=== PATIENT | female | born 1980 | race Hispanic/Latino ===

== ENCOUNTER 2021-06-02 19:16 | Emergency (ER) | payer SELFPAY ==
--- NOTE | ~2021-06-02 | CT_ITS ---
EXAMINATION: CT brain wo con EXAM DATE: 06/02/2021 23:29 INDICATION: Headache for 3 months, worse the last 3 days. TECHNIQUE: Spiral CT of the head was performed without contrast. Axial, coronal and sagittal images were reviewed. The dose-length product (DLP) for this examination was 605.33 mGy-cm. The exposure w as tailored according to patient size, and iterative reconstruction (ASIR) was used as additional dos e reduction technique. There is no prior study for comparison. FINDINGS: There is no acute intraparenchymal hemorrhage. No evidence of intraparenchymal brain mass lesion. No evidence of acute infarction. There is no mass effect or midline shift. The ventricles are normal in size. There are no extra-axial collections. There are no acute calvarial fractures. T he orbits are unremarkable. Soft tissue is unremarkable. The visualized sinuses and mastoid air robert ls are well aerated. IMPRESSION: 1. Unremarkable head CT examination. Reviewed, dictated and finalized at location G.
[2021-06-02 19:41] VITALS: BP 111/65; PULSE 83; RESP 16; TEMP 36.5; O2SAT 99
--- NOTE | 2021-06-02 23:13 | ED.HA ---
HPI - Headache General Chief Complaint: Headache Stated Complaint: BAUMAN Time Seen by Provider: 06/02/21 22:34 Source: patient, family and RN notes reviewed Mode of arrival: ambulatory Limitations: language barrier (hebrew speaking) History of Present Illness HPI Narrative: This is a 40 year old female who presents for evaluation of headache. Patient reports her headache has been present for several months but it worsened over the past 3 days. She describes pain has electricity through out her head. She denies any exacerbating factors. She denies associated neck pain, nausea, vomiting, fever, sinus drainage, change in vision, dizziness. She has not taken any thing for pain. MD elicited complaint: headache Related Data Allergies Allergy/AdvReac Type Severity Reaction Status Date / Time No Known Allergies Allergy Verified 06/02/21 21:53 Review of Systems Review of Systems: All systems reviewed & are unremarkable except as noted in HPI and below Constitutional: Constitutional: Denies chills and Denies fever(s) Eyes: Eyes: Denies change in vision and Denies photophobia ENT: Denies nasal congestion Gastrointestinal: Gastrointestinal: Denies nausea and Denies vomiting Neurologic: Denies dizziness and Reports headache(s) [facility] Past Medical History Medical History (Updated 06/03/21 @ 00:46 by Waleska Alarcon MD) Patient denies medical problems Surgical History Surgical History (Updated 06/02/21 @ 23:14 by Waleska Alarcon MD) No pertinent past surgical history Social History Social History (Updated 06/02/21 @ 23:14 by Waleska Alarcon MD) Smoking status: Never smoker Gender identity (if verbalized by the patient): Female Exam Narrative: Exam Narrative: GENERAL: Well-appearing, well-nourished, and in no acute distress. HEAD: Normocephalic, atraumatic EYES: PERRLA and EOMI, conjunctiva clear without discharge EARS: TM's clear bilaterally without erythema or dullness NOSE: Nares clear, no rhinorrhea or epistaxis THROAT:Mucous membranes moist, Oropharynx normal without erythema, exudate, peritonsillar swelling or fluctuance NECK: Supple, without lymphadenopathy or mass RESPIRATORY: No respiratory distress, Airway patent, Respirations non-labored, Clear to auscultation without rales, rhonchi or wheeze HEART: Regular rate and rhythm. No murmur heard. Normal peripheral pulses. ABDOMEN: Soft, nontender, nondistended, normal active bowel sounds. No masses. No rebound or guarding, No organomegaly. EXTREMITIES: No edema, normal strength with full range of motion. SKIN: Warm, dry, normal color without rash NEURO: Alert and oriented x3. CN 2-12 grossly intact. No focal deficits. PSYCH: Normal mood and affect. Course Reevaluation(s) Reevaluation #1: PAtient is in no acute distress and she is neurovascular intact. She reports she had improvement in pain after toradol . I reviewed CT is unremarkable and she can follow up with PCP for evaluation. Date: 06/03/21 Time: 00:45 Vital Signs Vital signs: Vital Signs Temperature 97.7 F 06/02/21 19:41 Pulse Rate 83 06/02/21 19:41 Respiratory Rate 16 06/02/21 19:41 Blood Pressure 111/65 06/02/21 19:41 Pulse Oximetry 99 06/02/21 19:41 Temperature 97.7 F 06/02/21 19:41 Pulse Rate 78 06/03/21 01:22 Respiratory Rate 16 06/02/21 19:41 Blood Pressure 115/70 06/03/21 01:22 Pulse Oximetry 99 06/03/21 01:22 MDM - Headache Lab Data Labs: UCG Bedside Result Negative Reference Range: Negative Imaging Data Radiologist's impression: ITS Impressions Head CT 06/02/21 23:30 IMPRESSION: 1. Unremarkable head CT examination. Discharge Plan Discharge Clinical Impression: Headache Qualifiers: Headache type: unspecified Headache chronicity pattern: chronic headache Patient Disposition: Home, Self-Care Condition: Stabl
[2021-06-02] MEDS: KETOROLAC 30 MG/ML VIAL (*BKC) IM (23:15)
[2021-06-03 01:22] VITALS: BP 115/70; PULSE 78; O2SAT 99
== END 2021-06-03 01:21 | disposition home or self-care (01) ==
PROVIDERS: Emergency Provider General Practice; PCP Registered Nurse
DX: R51.9 Headache, unspecified (principal)
CPT/HCPCS: 70450; 81025; 96372; 99283; J1885

== ENCOUNTER 2021-09-13 12:16 | Emergency (ER) | payer SELFPAY ==
[2021-09-13 12:25] VITALS: BP 107/65; PULSE 85; RESP 16; TEMP 36.5; O2SAT 98
--- NOTE | 2021-09-13 12:34 | ED.EAR ---
HPI - Ear Problem General Chief complaint: Ear Stated complaint: ear pain Time Seen by Provider: 09/13/21 12:45 Source: patient and RN notes reviewed Mode of arrival: ambulatory Limitations: language barrier (Vietnamese-speaking, interpretation provided by patient's son) History of Present Illness HPI Narrative: 40-year-old female presents with concern for left ear pain. Reports rhinorrhea, nasal congestion and ear pain started on . She denies fever, drainage from the ear, cough, shortness of breath. She also reports having lower abdominal discomfort that started on Wednesday. She denies diarrhea, vomiting, nausea, constipation. Reports her last normal bowel movement was this morning prior to arrival. She denies taking any medications for her symptoms. Denies dysuria, frequency, urgency. Reports white discharge. Patient reports her last menstrual period was August 24 and was normal.. Patient has been fully vaccinated for Covid. MD Complaint: ear pain Related Data Allergies Allergy/AdvReac Type Severity Reaction Status Date / Time No Known Allergies Allergy Verified 09/13/21 12:32 Review of Systems Review of Systems: CONSTITUTIONAL: Denies malaise, chills, sweats, or fever. EYES: Denies visual changes, redness, or discharge. ENT: Reports rhinorrhea, congestion, left ear pain. Denies sinus pain and sore throat. CARDIOVASCULAR: Denies chest pain, palpitations, or edema. RESPIRATORY: Denies cough or dyspnea. GASTROINTESTINAL: Reports lower abdominal pain. Denies nausea, vomiting, diarrhea, constipation, decreased appetite SKIN: Denies rash or itching. MUSCULOSKELETAL: Denies myalgia. NEUROLOGIC: Denies headache. All systems reviewed & are unremarkable except as noted in HPI and below PMFSH Past Medical History Medical History (Updated 09/13/21 @ 12:56 by Reina Frazier NP) Patient denies medical problems Surgical History Surgical History (Updated 06/02/21 @ 23:14 by Waleska Alarcon MD) No pertinent past surgical history Social History Social History (Updated 06/02/21 @ 23:14 by Waleska Alarcon MD) Smoking status: Never smoker Gender identity (if verbalized by the patient): Female Comments At time of signature, agree with nursing past medical, surgical, social and family history. There is no relevant family history pertinent to the presenting complaint Exam Narrative: GENERAL: Well-appearing, well-nourished, and in no acute distress. HEAD: Normocephalic EYES: PERRLA, conjunctivae clear ENT: Nares clear, clear discharge. Mucous membranes moist. Right TM white with dull light reflex, left TM erythematous; no tragal tenderness. Oropharynx not erythematous without lesions. Tonsils not enlarged and without exudate, no drooling, no hoarseness, no trismus, uvula midline. NECK: Supple. No lymphadenopathy CHEST: Clear to auscultation, breath sounds equal. No wheezing, rhonchi, rales, or stridor. No respiratory distress, speaks in full sentences. HEART: Regular rate and rhythm. No murmur heard. ABDOMEN: Soft, no palpable masses, bowel sounds active in all 4 quadrants. Mild left lower quadrant tenderness SKIN: Warm, dry, no rash. NEURO: Alert and oriented x3. PSYCH: Normal mood and affect Course Course Emergency Course: Patient is aware of diagnosis, understands and agrees to treatment plan. Anticipatory guidance given. Patient agrees to follow-up as directed and is aware of reasons to seek care at the emergency department. Portions of this record may have been created with voice recognition software Vital Signs Vital signs: Reviewed. Medical Decision Making MDM Narrative Medical decision making narrative: Differential diagnosis considered: Dillard virus, strep pharyngitis, allergic rhinitis, upper respiratory tract infection, sinusitis, rhinosinusitis, nasopharyngitis. viral pharyngitis, otitis media, otitis externa, otitis effusion, eustachian tube dysfunction, foreign body, cerumen impaction. Exam f
== END 2021-09-13 13:25 | disposition home or self-care (01) ==
PROVIDERS: Emergency Provider Nurse Practitioner
DX: H66.002 Acute suppurative otitis media without spontaneous rupture of ear drum, left ear (principal); Z20.822 Contact with and (suspected) exposure to COVID-19
CPT/HCPCS: 81003; 87426; 99213; C9803; G0463

== ENCOUNTER 2022-12-08 16:28 | Emergency (ER) | payer SELFPAY ==
[2022-12-08 16:35] VITALS: BP 131/81; PULSE 95; RESP 18; TEMP 37.2; O2SAT 99
--- NOTE | 2022-12-08 16:35 | ED.GENADULT ---
HPI - General Adult General Chief complaint: Abdominal Pain Stated complaint: Abdominal Pain Time Seen by Provider: 12/08/22 16:35 Source: patient, RN notes reviewed, old records reviewed and faculty administrator Mode of arrival: ambulatory Limitations: no limitations History of Present Illness HPI narrative: 42-year-old female presents to the [facility] with complaints of right lower quadrant pain this is been getting worse over the last week. Denies any urinary symptoms. Denies fevers. Had to use an faculty administrator for [place]an the entire exam. No primary Last bowel movement this morning, normal 10 November was last menstrual period Related Data Allergies Allergy/AdvReac Type Severity Reaction Status Date / Time dog dander Allergy Mild Unknown Verified 12/08/22 16:40 house dust Allergy Mild Unknown Verified 12/08/22 16:40 Review of Systems Review of Systems: All systems reviewed & are unremarkable except as noted in HPI and below Constitutional: Constitutional: Reports no additional constitutional complaints Eyes: Eyes: Reports no additional eye complaints ENT: Reports system reviewed and no additional complaints, except as documented Cardiovascular: Cardiovascular: Reports no additional cardiovascular complaints, Denies chest pain and Denies dyspnea Respiratory: Respiratory: Reports no additional respiratory complaints, Denies chest congestion, Denies cough and Denies dyspnea Gastrointestinal: Gastrointestinal: Reports as per HPI, Reports abdominal pain (RLQ), Reports nausea and Denies vomiting Musculoskeletal: Musculoskeletal: Reports no additional musculoskeletal complaints Integumentary/Breasts: Skin/Breast: Reports system reviewed and no additional complaints, except as docu Neurologic: Reports system reviewed and no additional complaints, except as documented Psychiatric: Psychiatric: Reports no additional psychiatric complaints Allergic/Immunologic: Allergic/Immunologic: Reports no additional allergic/immunologic complaints [facility] Past Medical History Medical History GERD (gastroesophageal reflux disease) Patient denies medical problems Vitamin D deficiency Surgical History Surgical History Hx of cholecystectomy No pertinent past surgical history Social History Social History Smoking status: Never smoker Alcohol intake: current Substance use: never Gender identity (if verbalized by the patient): Female Comments At the time of my signature, I reviewed and agree with the nursing past medical, surgical, social, and family history. There is no relevant family history pertinent to the patient complaint. Exam Const: General: cooperative, healthy appearing, comfortable, no acute distress, well developed, alert and well nourished Nutritional Appearance: well nourished and obese Orientation/consciousness: patient oriented x3 Limitations: no limitations HENMT: Head: normal to inspection Ears: hearing grossly normal bilaterally and external ears normal Face/Nose/Sinus: Normal external nose present, Normal nares present, Normal nasal mucous membranes and turbinates present and normal facial exam Face and sinus: normal facial exam Mouth: Yes Normal oral and palatal mucosa present, Yes lip normal and Yes moist mucous membranes Throat: posterior oropharynx normal and uvula midline Eyes: General: appearance normal, both eyes and all related structures Alignment and Position: alignment normal Periorbital: periorbital findings normal Conjunctivae: conjunctivae normal Pupils: Equal, round and reactive pupils present EOM: EOMs intact bilaterally Neck: Neck: normal visual inspection, full ROM, no lymphadenopathy and no meningeal signs Chest: Chest palpation & inspection: normal inspection of the chest Resp: Effort & Inspection: normal respiratory effo
== END 2022-12-08 17:02 | disposition short-term general hospital (02) ==
PROVIDERS: Emergency Provider Nurse Practitioner; PCP Registered Nurse
DX: R10.31 Right lower quadrant pain (principal); K21.9 Gastro-esophageal reflux disease without esophagitis
CPT/HCPCS: 99212; G0463

== ENCOUNTER 2022-12-09 15:09 | Emergency (ER) | payer SELFPAY ==
--- NOTE | ~2022-12-09 | CT_ITS ---
EXAMINATION: CT abdomen pelvis w con DATE: 12/09/2022 18:06 INDICATION: Right lower quadrant abdominal pain. TECHNIQUE: Computed tomography (CT) of the abdomen and pelvis was performed with 100 mL Omnipaque 350 intravenous contrast. Automated exposure control and iterative reconstruction technique were employe d. The dose-length product was 356.48 mGy-cm. COMPARISON: CT abdomen and pelvis 10/28/2017 FINDINGS: The visualized portions of the lung bases demonstrate mild atelectasis. No pleural effusion . The heart size is normal. No pericardial effusion. The liver and spleen are normal. The gallbladder is absent. The pancreas, adrenal glands, and kidneys are normal. There are no dilated loops of bowel . The appendix is normal. There are no pathologically enlarged lymph nodes. There is no free intraper itoneal fluid. There is mild thoracic spondylosis. IMPRESSION: 1. No etiology for the patient's symptoms. Reviewed, dictated and finalized at location A. R [employer]
[2022-12-09 15:11] VITALS: BP 116/70; PULSE 87; RESP 18; TEMP 36.2; O2SAT 98
[2022-12-09 15:30] LABS: Basophils Percent Auto 0.4 % (0.2-1.2); Eosinophils Absolute Auto 0.1 K/mm3 (0-0.3); Eosinophils Percent Auto 1.9 % (0-4.4); Hematocrit 38.1 % (37.0-47.0); Hemoglobin 12.7 g/dL (12.0-15.0); Immature Granulocyte Absolute 0.02 K/mm3 (0.00-0.031); Immature Granulocyte Percent A 0.3 % (0-0.5); Lymphocytes Percent Auto 33.4 % (18.3-44.2); Mean Corpuscular HGB Conc 33.3 g/dl (32-36); Mean Corpuscular Hemoglobin 29.3 pg (26-34); Mean Corpuscular Volume 87.8 fl (80-100); Mean Platelet Volume 11.7 fl (7.4-10.4); Monocytes Absolute Auto 0.5 K/mm3 (0.1-0.6); Monocytes Percent Auto 6.8 % (2.6-8.5); Neutrophils Absolute Auto 4.3 K/mm3 (1.3-6.7); Neutrophils Percent Auto 57.2 % (45.5-73.1); Platelet Count Result 176 k/mm3 (150-375); Red Blood Count 4.34 M/mm3 (4.2-5.4); Red Cell Distribution Width 12.2 % (11.5-14.5); White Blood Count 7.5 K/mm3 (4.5-10.0)
[2022-12-09 15:39] LABS: Alanine Aminotransferase 22 U/L (6-35); Albumin Level 4.5 g/dL (3.5-5.1); Alkaline Phosphatase 76 U/L (38-126); Anion Gap 6 mmol/L (8-16); Aspartate Amino Transferase 27 U/L (14-36); Bilirubin,Total 1.7 mg/dL (0.2-1.3); Blood Urea Nitrogen 7 mg/dL (7-17); Calcium 8.6 mg/dL (8.4-10.2); Carbon Dioxide 29 mmol/L (22-30); Chloride 103 mmol/L (98-107); Estimated Glomerular Filt Rate > 60; Glucose 140 mg/dL (65-110); Lipase 67 U/L (23-300); Potassium 3.7 mmol/L (3.4-5.0); Sodium 138 mmol/L (137-145)
[2022-12-09 16:11] LABS: Appearance Urine Cloudy (Clear); Bilirubin Urine Negative (Negative); Blood Urine Trace-lysed (Negative); Color Urine Yellow (Yellow); Glucose Urine UA Negative (Negative); Ketones Urine Negative (Negative); Leukocyte Esterase Ur 1+ LEU/UL (Negative); Nitrate Urine Negative (Negative); Protein Urine Negative (Negative); Specific Grav Ur 1.015 (1.001-1.035); Urobilinogen Urine 0.2 mg/dL (<2.0); pH Urine 7.5 (5.0-9.0)
[2022-12-09 16:12] LABS: Amorphous Sediment Urine Few; Mucus Urine Rare /lpf; RBC Urine 0-2 /hpf (0-2); Squamous Epithelial Cell Urine Few /hpf (Few); WBC Urine 0-3 /hpf
[2022-12-09 16:13] LABS: Add Urine Microscopic? YES
--- NOTE | 2022-12-09 17:24 | ED.ABDPAIN ---
HPI - Abdominal Pain General Chief Complaint: Abdominal Pain Stated Complaint: RLQ pain Time Seen by Provider: 12/09/22 16:58 Source: patient Mode of arrival: ambulatory Limitations: no limitations and language barrier History of Present Illness HPI narrative: Patient is a 42 y/o female who presents to the ED with c/o lower ABD pain. Patient is primarily Vietnamese-speaking. Son at bedside assisted in translation. [employer] sign language interpreter was offered and declined. Patient reports having pain across her lower abdomen for the past 5 days. Pain has been fairly constant. She has not tried anything for the pain. Denies any aggravating or alleviating factors. She states she had a similar pain 4 years ago and was worked up at an outside hospital, but was not found to have anything wrong. She is otherwise asymptomatic. Denies any fevers, nausea, vomiting, diarrhea, constipation, rectal bleeding, urinary symptoms. Related Data Allergies Allergy/AdvReac Type Severity Reaction Status Date / Time dog dander Allergy Mild Unknown Verified 12/08/22 16:40 house dust Allergy Mild Unknown Verified 12/08/22 16:40 Review of Systems Review of Systems: CONSTITUTIONAL: Denies fever, chills, or sweats. CARDIOVASCULAR: Denies chest pain. RESPIRATORY: Denies cough or dyspnea. GASTROINTESTINAL: Reports lower abdominal pain. Denies nausea, vomiting, or diarrhea. GENITOURINARY: Denies dysuria or hematuria. All systems reviewed & are unremarkable except as noted in HPI and below PMFSH Past Medical History Medical History GERD (gastroesophageal reflux disease) Patient denies medical problems Vitamin D deficiency Surgical History Surgical History Hx of cholecystectomy No pertinent past surgical history Social History Social History Smoking status: Never smoker Alcohol intake: current Substance use: never Gender identity (if verbalized by the patient): Female Exam Narrative: GENERAL: Well appearing, well-nourished, non-toxic, in no acute distress. HEAD: Normocephalic, atraumatic. NECK: Supple. No adenopathy, no masses. RESPIRATORY: Airway patent, respirations nonlabored. Clear to auscultation bilaterally, no rales, rhonchi, wheezing. CARDIOVASCULAR: Regular rate and rhythm without murmurs, rubs, or gallops. Peripheral pulses 2+ and equal bilaterally. ABDOMINAL: Soft, mild tenderness throughout lower abdomen, no significant focal tenderness, nondistended, no hepatosplenomegaly. Normoactive BS. MUSCULOSKELETAL: Moves all extremities. Strength/ROM intact without gross deformities. SKIN: Warm, dry, normal color. No rashes. NEURO: A&O X3. Speech clear. Cranial nerves II-XII grossly intact. Steady gait. No ataxic movements. PSYCHIATRIC: Appropriate mood and affect. Normal interaction. Course Vital Signs Vital signs: Vital Signs Temperature 97.2 F L 12/09/22 15:11 Pulse Rate 87 12/09/22 15:11 Respiratory Rate 18 12/09/22 15:11 Blood Pressure 116/70 12/09/22 15:11 Pulse Oximetry 98 12/09/22 15:11 Temperature 97.9 F 12/09/22 19:57 Pulse Rate 72 12/09/22 19:57 Respiratory Rate 16 12/09/22 19:57 Blood Pressure 137/62 12/09/22 19:57 Pulse Oximetry 98 12/09/22 19:57 MDM - Abdominal Pain MDM Narrative Medical decision making narrative: Patient presented to ED with 5-day history of lower abdominal pain. She had not tried anything for pain prior to arrival. Vitals stable upon arrival. CBC and CMP unremarkable. No significant abnormalities. Bilirubin slightly elevated. Has been elevated in the past. UA without signs of infection. CT scan of abdomen pelvis obtained and unremarkable. No etiology for patient's symptoms. Discussed lab and imaging findings with patient. Patient feeling better with supportive therapy. Pain resol
[2022-12-09] MEDS: SODIUM CHLORIDE 0.9% IV 1,000 ML 999 ML IV CONT (17:50)
[2022-12-09] MEDS: KETOROLAC 30 MG/ML VIAL (*BKC) IV PUSH (18:46)
[2022-12-09 19:57] VITALS: BP 137/62; PULSE 72; RESP 16; TEMP 36.6; O2SAT 98
== END 2022-12-09 19:58 | disposition home or self-care (01) ==
PROVIDERS: Emergency Medicine; Emergency Provider Physician Assistant; PCP Registered Nurse
DX: R10.31 Right lower quadrant pain (principal)
CPT/HCPCS: 36415; 74177; 80053; 81001; 81025; 83690; 85025; 96365; 96375; 99284; J0131; J1885; J7030; Q9967

== ENCOUNTER 2023-07-23 19:10 | Emergency (ER) | payer MEDICAID, SELFPAY ==
--- NOTE | ~2023-07-23 | US_ITS ---
CORRECTED REPORT examination description change [facility] 07/27/23 This report was recreated on 07/27/23. Original report was EXAMINATION: US OB <= 14 weeks fetus w TV DATE: 07/23/2023 21:16 INDICATION: Unable to visualize heart beat. TECHNIQUE: Real-time transabdominal and transvaginal pelvic ultrasound was performed. COMPARISON: None. FINDINGS: TRANSABDOMINAL ULTRASOUND: The uterus measures 8.6 x 6.4 x 7.3 cm. TRANSVAGINAL ULTRASOUND: There is an intrauterine gestational sac. A yolk sac is identified. The crown rump length measures 1.5 cm, which correlates with an estimated gestational age of 8 weeks and 0 day(s) (+/-) 5 day(s). heart motion is not identified by M-mode Doppler. The right ovary measures 2.4 x 1.7 x 2.1 cm. The left ovary measures 2.4 x 1.6 x 1.7 cm. There is no free fluid in the pelvis. IMPRESSION: 1. demise. Reviewed, dictated and finalized at location E. MTDD IMPRESSION: 1. demise.
[2023-07-23 19:29] VITALS: BP 112/73; PULSE 84; RESP 15; TEMP 36.9; O2SAT 100
[2023-07-23 20:52] LABS: Appearance Urine Cloudy (Clear); Bacteria Urine 1+ /hpf; Bilirubin Urine Negative (Negative); Blood Urine Negative (Negative); Color Urine Yellow (Yellow); Glucose Urine UA Negative (Negative); Ketones Urine Trace mg/dL (Negative); Leukocyte Esterase Ur Trace LEU/UL (Negative); Need Manual Microscopic Reviewed; Nitrate Urine Negative (Negative); Protein Urine Negative (Negative); RBC Urine 21-50 /hpf (0-2); Specific Grav Ur 1.021 (1.001-1.035); Squamous Epithelial Cell Urine Moderate /hpf (Few); WBC Urine 0-5 /hpf; pH Urine 5.5 (5.0-9.0)
[2023-07-23 20:55] LABS: Add Urine Microscopic? YES
[2023-07-23 22:05] VITALS: BP 118/71; PULSE 89; RESP 17; O2SAT 99
[2023-07-23 22:09] VITALS: BP 118/71; PULSE 81; RESP 19; TEMP 36.4; O2SAT 100
[2023-07-23 22:16] LABS: Basophils Percent Auto 0.1 % (0.2-1.2); Eosinophils Absolute Auto 0.1 K/mm3 (0-0.3); Eosinophils Percent Auto 1.6 % (0-4.4); Hematocrit 34.1 % (37.0-47.0); Hemoglobin 11.2 g/dL (12.0-15.0); Immature Granulocyte Absolute 0.02 K/mm3 (0.00-0.031); Immature Granulocyte Percent A 0.3 % (0-0.5); Lymphocytes Absolute Auto 2.43 K/mm3 (0.9-3.2); Lymphocytes Percent Auto 30.8 % (18.3-44.2); Mean Corpuscular HGB Conc 32.8 g/dl (32-36); Mean Corpuscular Hemoglobin 29.8 pg (26-34); Mean Corpuscular Volume 90.7 fl (80-100); Mean Platelet Volume 12.5 fl (7.4-10.4); Monocytes Absolute Auto 0.5 K/mm3 (0.1-0.6); Monocytes Percent Auto 6.7 % (2.6-8.5); Neutrophils Absolute Auto 4.8 K/mm3 (1.3-6.7); Neutrophils Percent Auto 60.5 % (45.5-73.1); Platelet Count Result 166 k/mm3 (150-375); Red Blood Count 3.76 M/mm3 (4.2-5.4); Red Cell Distribution Width 12.7 % (11.5-14.5); White Blood Count 7.9 K/mm3 (4.5-10.0)
[2023-07-23 22:30] VITALS: BP 106/75; PULSE 84; RESP 22; O2SAT 98
[2023-07-23 22:37] LABS: Anion Gap 7 mmol/L (8-16); Blood Urea Nitrogen 5 mg/dL (7-17); Calcium 8.2 mg/dL (8.4-10.2); Carbon Dioxide 24 mmol/L (22-30); Chloride 105 mmol/L (98-107); Estimated Glomerular Filt Rate > 60; Glucose 136 mg/dL (65-110); Potassium 3.4 mmol/L (3.4-5.0); Sodium 136 mmol/L (137-145)
--- NOTE | 2023-07-23 22:44 | ED.PREGNANCY ---
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 Reports she was at an ultrasound clinic and was told they couldn't find a heartbeat so was told she should come to the ER. She is not currently having any symptoms. Denies fever, dysuria, vaginal bleeding, or pelvic cramping. Related Data Allergies Allergy/AdvReac Type Severity Reaction Status Date / Time No Known Allergies Allergy Verified 07/23/23 19:36 Review of Systems Review of Systems: CONSTITUTIONAL: Denies fever GASTROINTESTINAL: Denies abdominal pain, nausea, vomiting GENITOURINARY: Denies dysuria or hematuria. All systems reviewed & are unremarkable except as noted in HPI and below PMFSH Past Medical History Medical History (Updated 07/24/23 @ 00:44 by Moriah Kunz PA-C) History of gastroesophageal reflux (GERD) Social History Social History (Updated 07/23/23 @ 22:53 by Moriah Kunz PA-C) Substance use: never Exam Narrative: GENERAL: Well-appearing, well-nourished, and in no acute distress. HEAD: Normocephalic, atraumatic. EYES: EOMI. CHEST: Clear to auscultation. No respiratory distress. No wheezes rales or rhonchi HEART: Regular rate and rhythm. No murmur heard. Normal peripheral pulses. ABDOMEN: Soft, nontender, nondistended, normal active bowel sounds. EXTREMITIES: Normal range of motion. No edema. SKIN: Warm, dry, no rash. NEURO: No focal deficits. Alert and oriented x3. PSYCH: Normal mood and affect Course Course Emergency Course: Patient was updated on workup and agrees with plan of care Consultations Consultation #1: Spoke with Dr. Reed about patient and workup. Patient is to call to set up appointment for follow up Date: 07/24/23 Time: 00:36 Vital Signs Vital signs: Vital Signs Temperature 98.4 F 07/23/23 19:29 Pulse Rate 84 07/23/23 19:29 Respiratory Rate 15 07/23/23 19:29 Blood Pressure 112/73 07/23/23 19:29 Pulse Oximetry 100 07/23/23 19:29 Oxygen Delivery Room Air 07/23/23 19:29 Temperature 97.6 F 07/23/23 22:09 Pulse Rate 84 07/23/23 22:30 Respiratory Rate 22 H 07/23/23 22:30 Blood Pressure 106/75 07/23/23 22:30 Pulse Oximetry 98 07/23/23 22:30 Oxygen Delivery Room Air 07/23/23 19:29 MDM - OB/Uterine Contractions MDM Narrative Medical decision making narrative: Patient presents to the emergency department for abnormal ultrasound. She is 9 weeks by LMP. Went to an ultrasound clinic today and was told to come to the ER because they could not find a heartbeat. She denies any fevers, dysuria, hematuria, or vaginal bleeding. She is not have any pelvic cramping. Her vitals are stable. White blood cell count is normal. Patient mildly anemic with hemoglobin of 11.2. Metabolic panel without concerning findings. UA appears to be a contaminated catch with moderate squamous epithelial cells. Patient is O positive. Quantitative hCG 44,160. Obstetrics ultrasound shows demise. Patient was updated on workup. Spoke with Dr. Reed about patient and workup. Patient is to call to set up appointment for follow up early next week. Patient was given warnings to return to the ER Differential Diagnosis Differential diagnosis: Likely other (, threatened ) Lab Data Attestation: I reviewed the patient's lab results. 07/23/23 22:08 07/23/23 22:08 Labs: Lab Results 07/23/23 07/23/23 07/23/23 Range/Units 19:55 22:08 22:08 WBC 7.9 (4.5-10.0) K/mm3 RBC 3.76 L (4.2-5.4) M/mm3 Hgb 11.2 L (12.0-15.0) g/dL Hct 34.1 L (37.0-47.0) % MCV 90.7 (80-100) fl MCH 29.8 (26-34)
[2023-07-23 23:00] VITALS: BP 112/70; O2SAT 99
[2023-07-24 00:33] LABS: Anion Gap 7 mmol/L (8-16); Blood Urea Nitrogen 6 mg/dL (7-17); Calcium 8.3 mg/dL (8.4-10.2); Carbon Dioxide 24 mmol/L (22-30); Chloride 105 mmol/L (98-107); Estimated Glomerular Filt Rate > 60; Glucose 135 mg/dL (65-110); Potassium 3.4 mmol/L (3.4-5.0); Sodium 136 mmol/L (137-145)
[2023-07-24 01:01] VITALS: BP 136/86; O2SAT 100
== END 2023-07-24 01:18 | disposition home or self-care (01) ==
PROVIDERS: Emergency Medicine; Emergency Provider Physician Assistant
DX: O02.1 Missed abortion (principal); K21.9 Gastro-esophageal reflux disease without esophagitis
CPT/HCPCS: 36415; 76801; 76817; 80048; 81001; 81025; 84702; 85025; 85461; 86850; 86900; 86901; 99284

== ENCOUNTER 2023-08-10 15:29 | Emergency (ER) | payer SELFPAY ==
[2023-08-10 16:30] VITALS: BP 106/62; PULSE 86; RESP 18; TEMP 36.9; O2SAT 99
[2023-08-10 19:25] LABS: Basophils Percent Auto 0.2 % (0.2-1.2); Eosinophils Absolute Auto 0.2 K/mm3 (0-0.3); Eosinophils Percent Auto 1.8 % (0-4.4); Hematocrit 39.5 % (37.0-47.0); Hemoglobin 13.1 g/dL (12.0-15.0); Immature Granulocyte Absolute 0.02 K/mm3 (0.00-0.031); Immature Granulocyte Percent A 0.2 % (0-0.5); Lymphocytes Absolute Auto 2.48 K/mm3 (0.9-3.2); Mean Corpuscular HGB Conc 33.2 g/dl (32-36); Mean Corpuscular Hemoglobin 30.1 pg (26-34); Mean Corpuscular Volume 90.8 fl (80-100); Mean Platelet Volume 11.5 fl (7.4-10.4); Monocytes Absolute Auto 0.6 K/mm3 (0.1-0.6); Monocytes Percent Auto 6.9 % (2.6-8.5); Neutrophils Absolute Auto 5.3 K/mm3 (1.3-6.7); Neutrophils Percent Auto 61.9 % (45.5-73.1); Platelet Count Result 177 k/mm3 (150-375); Red Blood Count 4.35 M/mm3 (4.2-5.4); Red Cell Distribution Width 12.7 % (11.5-14.5); White Blood Count 8.6 K/mm3 (4.5-10.0)
== END 2023-08-10 18:00 | disposition left against medical advice (07) ==
PROVIDERS: Emergency Provider Emergency Medicine; PCP Registered Nurse
DX: O03.9 Complete or unspecified spontaneous abortion without complication (principal)
CPT/HCPCS: 36415; 84702; 85025; 99199

== ENCOUNTER 2023-08-12 13:08 | Day surgery (SDC) | payer MEDICAID, SELFPAY ==
[2023-08-12] VITALS (7 sets, daily range): BP systolic 101–124; BP diastolic 57–79; PULSE 62–79; RESP 16; TEMP 36.6; O2SAT 100
--- NOTE | 2023-08-12 11:54 | P.HP_ITS ---
H&P: HPI History of Present Illness Date/Time: 08/12/23 11:54 Chief Complaint: The vaginal bleeding Narrative: is a 42-year-old multiparous patient 1st trimester with heavy bleeding. Cervix is open consistent with incomplete AB she is admitted for suction dilatation curettage Exam Const: General: cooperative, healthy appearing and comfortable Nutritional Appearance: average body habitus Orientation/consciousness: oriented to person, oriented to place and oriented to time Resp: Effort & Inspection: normal respiratory effort Cardio: Rate: regular rate Rhythm: regular rhythm Heart sounds: S1 normal heart sound present and S2 normal heart sound present GI: Inspection: normal to inspection : External Female Exam: normal external appearance Speculum Exam - Vagin a: normal appearance of the vagina and vaginal bleeding Speculum Exam - Cervix: normal appearance of the cervix ( cervix open) Bimanual exam- vagina & uterus: enlarged Assessment and Plan Assessment and plan (1) Incomplete : Code(s): O03.4 - Incomplete spontaneous without complication Status: Acute Plan suction dilatation curettage
--- NOTE | 2023-08-12 11:56 | WPDHPUPDATE1 ---
History and Physical Update Update Date/Time: 08/12/23 11:56 History and Physical has been reviewed, including an updated exam of the patient. There are NO changes in the patient's condition. Risks, benefits, and alternatives have been discussed and questions answered. Patient agrees to proceed with procedure.
[2023-08-12] MEDS: LACTATED RINGERS 1,000 ML 30 ML IV CONT (12:00)
--- NOTE | 2023-08-12 12:20 | P.PNAN_ITS ---
Anes - Initial Pre Proc Eval Procedure: Operation Date: 08/12/23 11:15 Proposed Procedures p Suction Dilation and Curettage - Nabil Gastelum MD Date/Time: 08/12/23 12:20 Surgeon: Nabil Gastelum MD Pre Op Diagnosis: missed ab, excessive bleeding Patient Data Age: 42 Gender: F Height: Weight: Allergies Allergy/AdvReac Type Severity Reaction Status Date / Time No Known Allergies Allergy Verified 08/12/23 11:58 Home Medications Medication Instructions Recorded Confirmed Type hydrocodone 5 mg-acetaminophen 325 1 tablet PO Q4H PRN pain #14 tabs 08/12/23 Rx mg tablet Patient hx anesthesia problems: none Family hx anesthesia problems: none Results Review: All pre-operative results and documents have been reviewed as part of the pre- operative evaluation. Anes - Eval Final PreProcedure Day of Procedure 08/12/23 12:21 Patient weight: obese Heart: regular rate and rhythm Lungs: clear to auscultation Neurological: alert and oriented Last oral intake: >/= 8 hours ASA classification: II Emergent: no Anesthetic plan: proceed Anesthesia type and monitoring: general GIVS and standard monitoring Results Review: All pre-operative results and documents have been reviewed as part of the pre- operative evaluation. Informed Consent: The patient's anesthetic plan and its attendant risks and benefits were discussed with the patient/family/POA. Questions were solicited and answers provided to the satisfaction of the patient/family/POA.
--- NOTE | 2023-08-12 12:27 | SUR.PREOP ---
[id number]- SPOKE WITH SUSTAINABLE AGRICULTURE SPECIALIST- CONNIE- [id number]. PROCEDURE REVIEWED WITH PT AND ALL QUESTIONS ANSWERED. DR. LAMB SPOKE WITH PT AND REVIEWED ANESTHESIA QUESTIONS. OBTAINED PT SON NAME AND NUMBER, HE SPEAKS ITALIAN.
[2023-08-12] MEDS: LIDOCAINE HCL 1% LOCAL INJ 10 ML VIAL INFILTRATE (12:45)
--- NOTE | 2023-08-12 12:58 | P.OP_ITS ---
Procedure Note - Detailed Date of Procedure 08/12/23 Pre-op Diagnosis missed ab, excessive bleeding Post-op Diagnosis Same Procedure Performed Suction dilatation curettage Surgeon Nabil Gastelum MD Anesthesia MAC and Local Indications This 42-year-old female with an incomplete AP Findings Uterus sounded to 10cm. Tissue consistent products of conception Description of Procedure Patient is prepped draped in sterile fashion placed in dorsal lithotomy position. Under excellent IV sedation weighted speculum placed in posterior fornix of vagina. Anterior lip of the cervix grasped with single-tooth tenacu lum. 2.5cc 1% xylocaine anesthesia placed at 2, 4, 8, 10:00 a.m. of the cervix. Uterus sounded to 10cm. Serial dilatation with fragmented dilators performed followed by passage of 10. Suction curette. A moderate to large amount of tissue was removed. When a good grating sound was heard the instruments withdrawn. Patient went recovery in satisfactory condition. All sponge, needle, instrument counts were correct. There were no immediate complications Estimated Blood Loss 50 Drains No Packing No Pathology Yes Complications No immediate complications Condition Stable Disposition PACU
--- NOTE | 2023-08-12 13:11 | SUR.PHASEII ---
Pt blood type O Pos no Rhogam needed.
--- NOTE | 2023-08-12 14:24 | SUR.PHASEII ---
Addendum entered by Shirley Saldana, MAGAN 08/12/23 15:39: Discharge instructions given via online content editor. All questions answered. Prescriptions reviewed and given to pt. Addendum entered by Shirley Saldana, MAGAN 08/12/23 15:36: Decreased bleeding noted at this time. Small amount of bright red blood on jaki pad. Dr. Monica Gastelum notified, ok to discharge pt. Awaiting pack train driver, pt's son notified of discharge. Addendum entered by Shirley Saldana, MAGAN 08/12/23 14:34: [address] Monica Gastelum that pt saturated pad and gush of blood noted when pt stood up. New orders received for [place]. Continue to monitor. Original Note: 1420 Dr. Monica Gastelum paged regarding increased vaginal bleeding.
[2023-08-12] MEDS: METHYLERGONOVINE MALEATE 0.2 MG/ML VIAL IM (15:02)
== END 2023-08-12 15:53 | disposition home or self-care (01) ==
PROVIDERS: PCP Registered Nurse; Visit Provider Obstetrics & Gynecology
PROC: (CPT 59812; principal; 2023-08-12 11:15)
DX: O03.4 Incomplete spontaneous abortion without complication (principal)
CPT/HCPCS: 59812; 88305; J2210; J2250; J2704; J3010; J7120

== ENCOUNTER 2024-01-29 14:08 | Emergency (ER) | payer OTHER, SELFPAY ==
[2024-01-29 14:09] VITALS: BP 132/79; PULSE 82; TEMP 36.4; O2SAT 100
--- NOTE | 2024-01-29 14:47 | ED.GENADULT ---
[facility] - General Adult General Chief complaint: Headache Stated complaint: headache Time Seen by Provider: 01/29/24 14:14 Source: patient and chinese language professor Mode of arrival: ambulatory Limitations: no limitations History of Present Illness HPI narrative: This is a 43-year-old female who presents to the ED with chief complaint of gradual onset headache for the past 5 days. History provided with help of chinese language professor. She reports pain is mainly left side but is bilaterally and the occiput. Reports the headache comes and goes but has not resolved for the past 5 days. She has had headaches with similar pattern in the past but never this long. Denies neck pain, fevers, chills, nausea, vomiting, abdominal pain, chest pain, vision change, numbness, weakness. Denies worst headache of life. States she has not taken anything at all for the headache or pain. Related Data Allergies Allergy/AdvReac Type Severity Reaction Status Date / Time dog dander Allergy Mild Unknown Verified 01/29/24 14:42 house dust Allergy Mild Unknown Verified 01/29/24 14:42 Review of Systems Review of Systems: All systems as dictated in [facility] Past Medical History Medical History (Updated 01/29/24 @ 15:01 by Geoff De La Cruz PA-C) GERD (gastroesophageal reflux disease) History of gastroesophageal reflux (GERD) Patient denies medical problems Vitamin D deficiency Surgical History Surgical History (Updated 08/13/23 @ 07:29 by Nicki Odom) Hx of cholecystectomy No pertinent past surgical history Social History Social History (System 08/13/23 @ 07:29 by Nicki Odom) Smoking status: Never smoker Alcohol intake: current Substance use: never Gender identity (if verbalized by the patient): Female Exam Narrative: GENERAL: Well-appearing, well-nourished, and in no acute distress. HEAD: Normocephalic, atraumatic. EYES: PERRLA and EOMI. ENT: Nares clear, no rhinorrhea or epistaxis. Mucous membranes moist. Oropharynx without tonsillar hypertrophy exudate or other lesions. NECK: Supple. No adenopathy or masses. No meningeal signs CHEST: No respiratory distress. Clear to auscultation. No wheezes rales or rhonchi HEART: Regular rate and rhythm. No murmur heard. Normal peripheral pulses. ABDOMEN: Soft, nontender, nondistended, normal active bowel sounds. MSK: Normal range of motion. No edema. SKIN: Warm, dry, no rash. NEURO: Alert and oriented x3. No focal deficits. PSYCH: Normal mood and affect. Course Vital Signs Vital signs: Vital Signs Temperature 97.5 F L 01/29/24 14:09 Pulse Rate 82 01/29/24 14:09 Blood Pressure 132/79 01/29/24 14:09 Pulse Oximetry 100 01/29/24 14:09 Temperature 97.5 F L 01/29/24 14:09 Pulse Rate 82 01/29/24 14:09 Blood Pressure 132/79 01/29/24 14:09 Pulse Oximetry 100 01/29/24 14:09 Medical Decision Making MDM Narrative Medical decision making narrative: This is a 43-year-old female who presents to the ED with chief complaint of 5 days of headache. Headache is typical in nature for and there are no red flag signs or symptoms today. Vitals are normal. Exam is benign. No signs of meningismus. She will be treated with migraine cocktail. Showed moderate improvement with migraine cocktail. Prescriptions for Tylenol and ibuprofen given for headaches. Pt will be discharged in stable condition. Return precautions given and supportive measures discussed. Pt is understanding and agreeable with plan for discharge and follow-up with PCP. Vital Signs Vital Signs: Vital Signs Temperature 97.5 F L 01/29/24 14:09 Pulse Rate 82 01/29/24 14:09 Blood Pressure 132/79 01/29/24 14:09 Pulse Oximetry 100 01/29/24 14:09 Temperature 97.5 F L 01/29/24 14:09 Pulse Rate 82 01/29/24 14:09 Blood Pressure 132/79 01/29/24 14:09 Pulse Oximetry 100 01/29/24 14:09 Discharge Plan Discharge Clinical Impression: Headache Patient Disposition: H
[2024-01-29] MEDS: SODIUM CHLORIDE 0.9% IV 1,000 ML 999 ML IV CONT (15:12)
[2024-01-29] MEDS: KETOROLAC 15 MG/ML VIAL (*BKC) IV PUSH (15:13)
[2024-01-29] MEDS: PROCHLORPERAZINE EDISYLATE 10 MG/2 ML VIAL IV PUSH (15:13)
[2024-01-29] MEDS: diphenhydrAMINE HCl INJ 50 MG/ML VIAL 25 MG IV PUSH (15:13)
[2024-01-29 16:32] VITALS: BP 128/74; PULSE 62; RESP 14; TEMP 36.7; O2SAT 100
== END 2024-01-29 16:30 | disposition home or self-care (01) ==
PROVIDERS: Emergency Provider Physician Assistant; PCP Registered Nurse
DX: R51.9 Headache, unspecified (principal)
CPT/HCPCS: 96361; 96374; 96375; 99284; J0780; J1200; J1885; J7030

== ENCOUNTER 2024-04-04 17:26 | Emergency (ER) | payer OTHER, SELFPAY ==
--- NOTE | ~2024-04-04 | CT_ITS ---
EXAMINATION: CT abdomen pelvis w con DATE: 04/04/2024 20:40 INDICATION: lower abdominal tenderness TECHNIQUE: Computed tomography (CT) of the abdomen and pelvis was performed with 100 mL Omnipaque-350 intravenous contrast. Automated exposure control and iterative reconstruction technique were employe d. The dose-length product was 312.70 mGy-cm. COMPARISON: 12/09/2022. FINDINGS: Lower thorax: Unremarkable Liver: Normal. Biliary/Gallbladder: Gallbladder is absent. No bile duct dilation. Pancreas: No mass or duct dilation. Spleen: Normal. Adrenals:No mass. Kidneys: No suspicious mass, obstructing stone, or hydronephrosis. GI tract: No small or large bowel dilation. Normal appendix. Mesentery/Peritoneum: No ascites, mass, or free air. Retroperitoneum: No mass. Pelvis: Pelvic organs are within normal limits. Soft Tissues: Soft tissues and body wall unremarkable. Bones: No acute osseous finding. IMPRESSION: No acute abdominopelvic process detected. Reviewed, dictated and finalized at location K.
[2024-04-04 17:27] VITALS: BP 119/75; PULSE 84; RESP 18; TEMP 36.5; O2SAT 99
--- NOTE | 2024-04-04 18:31 | ED.ABDPAIN ---
HPI - Abdominal Pain General Chief Complaint: Abdominal Pain Stated Complaint: abd pain Time Seen by Provider: 04/04/24 18:27 Source: patient and golf range attendant Mode of arrival: ambulatory Limitations: language barrier History of Present Illness HPI narrative: This is a 43-year-old female who is Frisian-speaking and presents to the ED for chief complaint of lower abdominal pain for the past 4 days. Reports the pain comes and goes and is sharp at times. Reports it is primarily all across the lower abdomen, however complains of generalized abdominal pain as well. States she also reports pain going into the bilateral lower back/flanks at times as well. Reports increased frequency of urination but feels like she does not get a lot out. She had 1 episode of urinary burning yesterday. Denies fevers, chills, nausea, vomiting, constipation, diarrhea, headache, chest pain, shortness of breath or cough. Related Data Allergies Allergy/AdvReac Type Severity Reaction Status Date / Time dog dander Allergy Mild Unknown Verified 01/29/24 14:42 house dust Allergy Mild Unknown Verified 01/29/24 14:42 Review of Systems Review of Systems: All systems as dictated in [facility] Past Medical History Medical History (Updated 04/05/24 @ 00:00 by Sina Wright) GERD (gastroesophageal reflux disease) History of gastroesophageal reflux (GERD) Patient denies medical problems Vitamin D deficiency Surgical History Surgical History (Updated 08/13/23 @ 07:29 by Nicki Odom) Hx of cholecystectomy No pertinent past surgical history Social History Social History (System 08/13/23 @ 07:29 by Nicki Odom) Smoking status: Never smoker Alcohol intake: current Substance use: never Gender identity (if verbalized by the patient): Female Exam Narrative: GENERAL: Well-appearing, well-nourished, and in no acute distress. HEAD: Normocephalic, atraumatic. EYES: PERRLA and EOMI. ENT: Nares clear, no rhinorrhea or epistaxis. Mucous membranes moist. Oropharynx without tonsillar hypertrophy exudate or other lesions. NECK: Supple. No adenopathy or masses. CHEST: No respiratory distress. Clear to auscultation. No wheezes rales or rhonchi HEART: Regular rate and rhythm. No murmur heard. Normal peripheral pulses. ABDOMEN: Mild suprapubic and left lower quadrant tenderness. Soft, otherwise nontender, nondistended, normal active bowel sounds. No peritoneal signs. Flank tenderness bilaterally. MSK: Normal range of motion. No edema. SKIN: Warm, dry, no rash. NEURO: Alert and oriented x3. No focal deficits. PSYCH: Normal mood and affect. Course Reevaluation(s) Reevaluation #1: Patient is resting comfortably. She feels ready to go home Date: 04/04/24 Time: 21:05 Vital Signs Vital signs: Vital Signs Temperature 97.7 F 04/04/24 17:27 Pulse Rate 84 04/04/24 17:27 Respiratory Rate 18 04/04/24 17:27 Blood Pressure 119/75 04/04/24 17:27 Pulse Oximetry 99 04/04/24 17:27 Oxygen Delivery Room Air 04/04/24 17:27 Temperature 97.3 F L 04/04/24 19:48 Pulse Rate 81 04/04/24 21:03 Respiratory Rate 20 04/04/24 21:03 Blood Pressure 102/70 04/04/24 21:03 Pulse Oximetry 98 04/04/24 21:03 Oxygen Delivery Room Air 04/04/24 17:27 MDM - Abdominal Pain MDM Narrative Medical decision making narrative: This is a 43-year-old female who presents to the ED with chief complaint of lower abdominal pain and urinary symptoms for the past few days. Vitals are normal. Exam remarkable for the above. Lab work today shows normal white count on CBC. CMP unremarkable. Urinalysis showing signs of acute UTI. CT abdomen pelvis with IV contrast is unremarkable for any acute findings. Patient will be given Rx for cephalexin for UTI. Pt will be discharged in stable condition. Return precautions given and supportive measures discussed. Pt is understanding and agreeable with plan for discharge and follow-up with
[2024-04-04 19:21] LABS: Basophils Percent Auto 0.2 % (0.2-1.2); Eosinophils Absolute Auto 0.2 K/mm3 (0-0.3); Eosinophils Percent Auto 2.1 % (0-4.4); Hematocrit 38.2 % (37.0-47.0); Immature Granulocyte Absolute 0.02 K/mm3 (0.00-0.031); Immature Granulocyte Percent A 0.2 % (0-0.5); Lymphocytes Absolute Auto 3.01 K/mm3 (0.9-3.2); Lymphocytes Percent Auto 33.3 % (18.3-44.2); Mean Corpuscular Hemoglobin 30.3 pg (26-34); Mean Platelet Volume 12.2 fl (7.4-10.4); Monocytes Absolute Auto 0.7 K/mm3 (0.1-0.6); Monocytes Percent Auto 8.2 % (2.6-8.5); Neutrophils Absolute Auto 5.1 K/mm3 (1.3-6.7); Platelet Count Result 151 k/mm3 (150-375); Red Blood Count 4.29 M/mm3 (4.2-5.4); Red Cell Distribution Width 12.4 % (11.5-14.5)
[2024-04-04 19:31] LABS: Alanine Aminotransferase 35 U/L (6-35); Albumin Level 4.5 g/dL (3.5-5.1); Alkaline Phosphatase 74 U/L (38-126); Anion Gap 7 mmol/L (4-12); Aspartate Amino Transferase 29 U/L (14-36); Bilirubin,Total 1.7 mg/dL (0.2-1.3); Blood Urea Nitrogen 10 mg/dL (7-17); Calcium 9.1 mg/dL (8.4-10.2); Carbon Dioxide 25 mmol/L (22-30); Chloride 104 mmol/L (98-107); Estimated Glomerular Filt Rate > 60; Glucose 114 mg/dL (65-110); Lipase 84 U/L (23-300); Potassium 3.8 mmol/L (3.4-5.0); Sodium 136 mmol/L (137-145)
[2024-04-04 19:48] VITALS: BP 105/66; PULSE 76; RESP 19; TEMP 36.3; O2SAT 98
[2024-04-04 20:20] LABS: Appearance Urine Turbid (Clear); Bacteria Urine 1+ /hpf; Bilirubin Urine Negative (Negative); Blood Urine Negative (Negative); Color Urine Yellow (Yellow); Glucose Urine UA Negative (Negative); Ketones Urine Negative (Negative); Leukocyte Esterase Ur 1+ LEU/UL (Negative); Need Manual Microscopic Reviewed; Nitrate Urine Negative (Negative); Non Pathogenic Casts 0-2; Protein Urine Negative (Negative); Specific Grav Ur 1.016 (1.001-1.035); Squamous Epithelial Cell Urine Few /hpf (Few); pH Urine 8.5 (5.0-9.0)
[2024-04-04 20:32] LABS: Add Urine Microscopic? YES
[2024-04-04 21:03] VITALS: BP 102/70; PULSE 81; RESP 20; O2SAT 98
[2024-04-04] MEDS: CEPHALEXIN 500 MG CAPSULE PO (21:20)
== END 2024-04-04 21:20 | disposition home or self-care (01) ==
PROVIDERS: Emergency Provider Physician Assistant; PCP Registered Nurse
DX: N39.0 Urinary tract infection, site not specified (principal); K21.9 Gastro-esophageal reflux disease without esophagitis; E55.9 Vitamin D deficiency, unspecified; Z90.49 Acquired absence of other specified parts of digestive tract
CPT/HCPCS: 36415; 74177; 80053; 81001; 81025; 83690; 85025; 87086; 87088; 99284; A9270; Q9967

== ENCOUNTER 2025-04-23 16:39 | Emergency (ER) | payer OTHER, SELFPAY ==
[2025-04-23 16:47] VITALS: BP 134/77; PULSE 88; RESP 20; TEMP 36.9; O2SAT 98
--- NOTE | 2025-04-23 16:56 | ED.ABDPAIN ---
HPI - Abdominal Pain General Chief Complaint: Abdominal Pain Stated Complaint: Abdominal Pain Time Seen by Provider: 04/23/25 17:00 Source: patient and mold forms builder Mode of arrival: ambulatory Limitations: no limitations History of Present Illness HPI narrative: Maryellen is a 44-year-old female patient presenting to the clinic today with complaints of left lower quadrant abdominal pain x3 days with diarrhea. She reports her pain is 10/10 currently. Denies any urinary symptoms or concern for STIs. Denies any vaginal discharge. Last bowel movement was today and was normal for the patient. No blood in her stool. Denies any flank pain. No fevers, chills or body aches. Denies chance of . Last menstrual period was 2 weeks ago. Related Data Home Medications ?Medication ?Instructions ?Recorded ?Confirmed ?Last Taken ?Type No Home Medications 04/23/25 04/23/25 Unknown History Allergies Allergy/AdvReac Type Severity Reaction Status Date / Time dog dander Allergy Mild Unknown Verified 04/23/25 17:36 house dust Allergy Mild Unknown Verified 04/23/25 17:36 Review of Systems Review of Systems: Pertinent positives per HPI. Patient denies any fever, chills, rash, headache, visual changes, dizziness, cough, runny nose, sore throat, shortness of breath, chest pain, palpitations, nausea, vomiting, diarrhea, constipation, or any urinary issues. PMFSH Past Medical History Medical History Vitamin D deficiency GERD (gastroesophageal reflux disease) Patient denies medical problems History of gastroesophageal reflux (GERD) Surgical History Surgical History Hx of cholecystectomy No pertinent past surgical history Social History Social History Smoking status: Never smoker Alcohol intake: current Substance use: never Gender identity (if verbalized by the patient): Female Comments At the time of my signature, I reviewed and agree with the nursing past medical, surgical, social, and family history. There is no relevant family history pertinent to the patient complaint. Exam Narrative: General: Well-developed, well nourished, in no apparent distress. Head: Normocephalic, atraumatic. Cardio: Regular rate and rhythm, s1 and s2 normal, no murmur appreciated. Resp: Clear to auscultation bilaterally, no rhonchi, rales, wheezing or rubs. Abdomen: Soft, pliable, bowel sounds present in all quadrants, left upper and lower quadrant tender to palpation, no organomegly, no CVAT tenderness. Course Course Emergency Course: Portions of this record may have been created with voice recognition software. Level of Care: Express Care Visit Vital Signs Vital signs: Vital Signs Temperature 36.9 C 04/23/25 16:47 Pulse Rate 88 04/23/25 16:47 Respiratory Rate 20 04/23/25 16:47 Blood Pressure 134/77 04/23/25 16:47 Pulse Oximetry 98 04/23/25 16:47 Oxygen Delivery Room Air 04/23/25 16:47 Temperature 36.9 C 04/23/25 16:47 Pulse Rate 88 04/23/25 16:47 Respiratory Rate 20 04/23/25 16:47 Blood Pressure 134/77 04/23/25 16:47 Pulse Oximetry 98 04/23/25 16:47 Oxygen Delivery Room Air 04/23/25 16:47 Vital signs reviewed MDM - Abdominal Pain MDM Narrative Medical decision making narrative: At the time of visit patient is resting comfortably on the exam table. Patient appears to be nontoxic. Plan: Transfer to the emergency room for left upper and lower quadrant abdominal pain. Patient is rating her pain 10/10. Patient declines to go to the emergency room-states she will go tomorrow. AMA was discussed with the patient using the hybrid derivatives trader. She voiced understanding of the risk and benefits. AMA was signed. Recommend going to the emergency room if her symptoms worsen or follow-up with her PCP as soon as possible. Supportive measures were discussed with the patient and they voiced understanding discharge instructions and agrees to treatment plan. Return precautions reviewed Differential Diagnosis Differential diagnosis: Likely abdominal pain, acute appendicitis, calculus of kidney, constipation, diverticulitis, endometriosis, gastroenteritis, pancreatitis, small bowel obstruction and other (COVID) Discharge Plan Discharge Clinical Impression: Abdominal pain Qualifiers: Abdominal location: left lower quadrant Qualified Code(s): R10.32 - Left lower quadrant pain Patient Disposition: Left Against Medical Advice Condition: Stable Instructions: Abdominal Pain (ED) Additional Instructions: You declined to go to the emergency room for further evaluation Risk and benefits were reviewed with you Risk include , disability, or worsening of condition Benefits include further treatment, definitive diagnosis, and better outcomes Go to the emergency room if your symptoms worsen. Se neg? a acudir a urgencias para oscar evaluaci?n adicional. Se revisaron con usted los riesgos y beneficios. El riesgo incluye muerte, discapacidad o empeoramiento de la condici?n. Los beneficios incluyen tratamiento adicional, diagn?stico definitivo y mejores resultados. Acuda a urgencias si charlie s?ntomas empeoran. Patient Language: Belarusian Prescriptions: No Action No Home Medications Follow-up/Referrals: Kennedy,JAKUB Perez [Primary Care Provider] - Time of Disposition: 17:53 Quality NIHSS Nursing Documentation ED NIHSS nursing documentation: reviewed/agree
== END 2025-04-23 18:00 | disposition left against medical advice (07) ==
PROVIDERS: Emergency Provider Nurse Practitioner Family; PCP Registered Nurse
DX: R10.32 Left lower quadrant pain (principal); K21.9 Gastro-esophageal reflux disease without esophagitis
CPT/HCPCS: 99211; G0463